=== PATIENT | male | born 1965 | race Caucasian/White ===

== ENCOUNTER 2017-04-22 17:56 | Emergency (ER) | payer BC ==
[~2017-04-22] VITALS: Ht 182.9 cm; Wt 97.5 kg
[2017-04-22] MEDS ORDERED: [UNRECOGNIZED DRUG - REMARK] INH (18:09)
[2017-04-22] MEDS ORDERED: [UNRECOGNIZED DRUG - REMARK] PO (18:09)
--- NOTE | 2017-04-22 18:10 | NUR ---
Dr. Sosa at bedside.
[2017-04-22 18:57] LABS: BASOPHILS % (AUTO) 0.3 % (0.0-2.0); EOSINOPHILS # (AUTO) 0.2 K/uL (0.0-0.7); EOSINOPHILS % (AUTO) 2.9 % (0.0-7.0); HEMATOCRIT 46.5 % (40-50); HEMOGLOBIN 16.2 G/DL (14.0-18.0); LYMPHOCYTES # (AUTO) 2.7 K/UL (0.8-4.8); LYMPHOCYTES % (AUTO) 40.7 % (20.5-51.5); MEAN CORPUSCULAR HEMOGLOBIN 29.9 UUG (27.0-31.0); MEAN CORPUSCULAR HGB CONC 35 g/dL (32.0-37.0); MEAN CORPUSCULAR VOLUME 86.1 FL (82.0-92.0); MONOCYTES # (AUTO) 0.6 K/UL (0.1-1.30); MONOCYTES % (AUTO) 9.3 % (0.0-11.0); NEUTROPHILS # (AUTO) 3.2 K/UL (1.8-8.9); NEUTROPHILS % (AUTO) 46.8 % (38.5-71.5); PLATELET COUNT (AUTO) 179 K/UL (150-450); RED BLOOD CELL COUNT(AUTO) 5.41 MIL/UL (4.7-6.1); WHITE BLOOD COUNT (AUTO) 6.7 K/UL (4.0-11.2)
[2017-04-22 19:00] LABS: CREATININE 1.3 mg/dL (0.6-1.3); POTASSIUM 3.6 mmol/L (3.5-5.1)
[2017-04-22 19:07] LABS: BILIRUBIN,DIRECT 0.2 mg/dL (0.0-0.2); BILIRUBIN,TOTAL 0.9 mg/dL (0.2-1.0); TOTAL PROTEIN, SERUM 7.8 g/dL (6.4-8.2)
--- NOTE | 2017-04-22 19:14 | NUR ---
Received report from NYDIA Lai. Assumed care of pt at this time.
[2017-04-22] MEDS ORDERED: NORMAL SALINE FLUSH 10 ML DISP.SYRIN ONE (19:37)
[2017-04-22] MEDS ORDERED: IV NORMAL SALINE 250 ML IV ONE (19:37)
[2017-04-22] MEDS ORDERED: IOHEXOL 350 100 ML INFUS..BTL ONE (19:37)
--- NOTE | 2017-04-22 19:48 | NUR ---
pt to CT
--- NOTE | 2017-04-22 20:02 | NUR ---
Pt returned from CT. Resting in position of comfort for self. No complaints at this time.
--- NOTE | 2017-04-22 22:30 | NUR ---
Pt stable for discharge per Dr. Pedro. IV dc'd, catheter intact. Drsg applied. No problems noted to site. Pt given ACI. Pt verbalized understanding of dc instructions. Pt ambulated out of er with steady gait.
[2017-04-22 22:51] VITALS: BP 153/96
== END 2017-04-22 22:35 | disposition home or self-care (01) ==
LOC: ER 17:57
DX: H53.8 Other visual disturbances (principal); I10 Essential (primary) hypertension; K21.9 Gastro-esophageal reflux disease without esophagitis; J45.909 Unspecified asthma, uncomplicated; H54.61 Unqualified visual loss, right eye, normal vision left eye; H33.20 Serous retinal detachment, unspecified eye
CPT/HCPCS: 36415; 70496; 70498; 80048; 80076; 84484; 85025; 85730; 93005; 93880; 99285; A4663; J3490; J7050; Q9967; 70030-TC

== ENCOUNTER 2018-07-17 16:51 | Emergency (ER) | payer BC ==
[~2018-07-17] VITALS: Ht 182.9 cm; Wt 9.5 kg
[~2018-07-17 16:51] MED LIST: [UNRECOGNIZED DRUG - REMARK] INH; [UNRECOGNIZED DRUG - REMARK] PO
[2018-07-17] MEDS ORDERED: LOSA25TA27 PO (17:00)
[2018-07-17] MEDS ORDERED: RANI150T43 PO (17:00)
[2018-07-17] MEDS ORDERED: HALOPERIDOL LACTATE 5 MG/1 ML VIAL ONE (17:29)
[2018-07-17] MEDS ORDERED: diphenhydrAMINE 50 MG/1 ML VIAL ONE (17:29)
[2018-07-17] MEDS ORDERED: LORAZEPAM 2 MG/1 ML VIAL ONE (17:30)
[2018-07-17 17:31] LABS: BASOPHILS % (AUTO) 0.2 % (0.0-2.0); EOSINOPHILS # (AUTO) 0.1 K/uL (0.0-0.7); EOSINOPHILS % (AUTO) 1.2 % (0.0-7.0); HEMATOCRIT 45.3 % (36.7-47.1); HEMOGLOBIN 15.7 g/dL (12.5-16.3); LYMPHOCYTES # (AUTO) 2.2 K/uL (20.0-40.0); LYMPHOCYTES % (AUTO) 37.1 % (20.5-51.5); MEAN CORPUSCULAR HEMOGLOBIN 29.4 uug (23.8-33.4); MEAN CORPUSCULAR HGB CONC 35 g/dL (32.5-36.3); MEAN CORPUSCULAR VOLUME 84.8 fL (73.0-96.2); MONOCYTES # (AUTO) 0.4 K/uL (2.0-10.0); MONOCYTES % (AUTO) 6.3 % (0.0-11.0); NEUTROPHILS # (AUTO) 3.3 K/uL (1.8-8.9); NEUTROPHILS % (AUTO) 55.2 % (38.5-71.5); PLATELET COUNT (AUTO) 175 K/uL (152-348); RED BLOOD CELL COUNT(AUTO) 5.35 MIL/uL (4.06-5.63)
[2018-07-17 17:39] LABS: CREATININE 1.1 mg/dL (0.6-1.3); POTASSIUM 3.9 mmol/L (3.5-5.1)
[2018-07-17 17:51] LABS: BILIRUBIN,DIRECT 0.2 mg/dL (0.0-0.2); BILIRUBIN,TOTAL 1.3 mg/dL (0.2-1.0); TOTAL PROTEIN, SERUM 7.6 g/dL (6.4-8.2)
--- NOTE | 2018-07-17 20:55 | NUR ---
2ND TROPONIN DRAWN BY MIMIST
--- NOTE | 2018-07-17 21:18 | NUR ---
DR SALAZAR AT BEDSIDE MADE PATIENT AWARE OF TEST RESULTS. WILL DC HOME.
--- NOTE | 2018-07-17 21:21 | NUR ---
Patient discharged to home in stable conditon. Written and verbal after care instructions given. Patient verbalizes understanding of instructions.
[2018-07-17 21:24] VITALS: BP 133/81
== END 2018-07-17 21:21 | disposition home or self-care (01) ==
LOC: ER 16:51
DX: R07.89 Other chest pain (principal); J45.909 Unspecified asthma, uncomplicated; K21.9 Gastro-esophageal reflux disease without esophagitis; I10 Essential (primary) hypertension; Z88.1 Allergy status to other antibiotic agents; Z79.899 Other long term (current) drug therapy
CPT/HCPCS: 36415; 70030-TC; 71045; 85025; 85730; 93005; A4663; J1200; J1630; J2060